=== PATIENT | female | born 1990 | race Two or more races ===

== ENCOUNTER 2020-01-09 01:47 | Emergency (ER) | payer OTHER ==
[~2020-01-09] VITALS: Ht 162.6 cm; Wt 63.5 kg
== END 2020-01-09 05:07 | disposition home or self-care (01) ==
LOC: ER 01:47
DX: N39.0 Urinary tract infection, site not specified (principal); Z20.828 Contact with and (suspected) exposure to other viral communicable diseases

== ENCOUNTER → 2022-05-07 | Emergency (ER) | payer OTHER ==
[~2022-05-07] VITALS: Ht 162.6 cm; Wt 55.8 kg
== END | disposition left against medical advice (07) ==
LOC: ER 09:52
DX: J03.90 Acute tonsillitis, unspecified (principal)